=== PATIENT | female | born 2005 | race Caucasian/White ===

== ENCOUNTER → 2023-11-19 14:58 | Outpatient (REF) | payer OTHER, SELFPAY | LOC: WDC 14:58 | PROVIDERS: ATTENDING PHYSICIAN Physician Assistant Medical | DX: N64.52 Nipple discharge (principal) | CPT/HCPCS: 76642 ==

== ENCOUNTER → 2024-03-03 09:44 | Outpatient (REF) | payer OTHER, SELFPAY | LOC: MRI 3T 09:44 | PROVIDERS: ATTENDING PHYSICIAN Surgery; FAMILY PHYSICIAN Physician Assistant Medical | DX: N64.52 Nipple discharge (principal) | CPT/HCPCS: 77049; A9585 ==

== ENCOUNTER → 2025-03-14 14:37 | Outpatient (REF) | payer OTHER, SELFPAY | LOC: WDC 14:37 | PROVIDERS: ATTENDING PHYSICIAN Physician Assistant Medical | DX: R92.8 Other abnormal and inconclusive findings on diagnostic imaging of breast (principal) | CPT/HCPCS: 76642 ==